=== PATIENT | male | born 1935 | race Caucasian/White ===

== ENCOUNTER 2024-02-26 17:23 | Emergency (ER) | payer MEDICARE ==
--- NOTE | 2024-02-26 17:29 | ERPHSYRPT ---
- History of Present Illness Time Seen by Provider: 02/26/24 17:28 Source: patient, family Exam Limitations: no limitations Physician History: This is a cachectic appearing 88-year-old white male patient of Dr. Vivas who was being seen by nurse practitioner Redd at the [facility]. The patient has had bilateral lower extremity wounds for greater than 4 months per patient and per patient's significant other. He has a history of hypertension and TMJ. He says he has been told he has CHF but does not routinely take his diuretic medication. Patient was sent to the emergency department to have his bilateral lower extremity wounds evaluated despite them being present for over 4 months. I reviewed the outpatient order sheet that the nurse practitioner wanted the patient to have. I made sure I added all these to the patient's workup. Patient denies chest pain. He chronically has shortness of breath and it is no different today. He is unsure if he wants to stay here this evening. He will complete the workup Method of Injury: other (No injury) Quality: other (Occasionally stretching and tearing sensation) Severity of Pain-Max: mild Severity of Pain-Current: mild Lower Extremities Pain: leg: bilateral (Low the knee bilaterally including mid tibia level caudal to the plantar surface of his feet), ankle: bilateral, heel: bilateral Modifying Factors: Improves With: movement Associated Symptoms: other (Hurts to bear weight) Allergies/Adverse Reactions: No Known Drug Allergies Allergy (Verified 02/26/24 17:59) Home Medications: Acyclovir 800 mg [Acyclovir] 800 mg PO UD 02/26/24 [History] Ampicillin Trihydrate 500 mg PO UD 02/26/24 [History] Carbamazepine 200 mg [Tegretol 200 MG] 200 mg PO QID 02/26/24 [History] Metoprolol Succinate 25 mg Xl* [Toprol-Xl 25MG Tablets] 50 mg PO DAILY 08/16 [History] Travel Risk - International Travel Have you traveled outside of the country in past 3 weeks: No - Emerging Infectious Disease Are you exhibiting symptoms associated with any current EIDs: No - Review of Systems Constitutional: No Symptoms Eyes: No Symptoms Ears, Nose, & Throat: No Symptoms Respiratory: Dyspnea (Chronic) Cardiac: No Symptoms Abdominal/Gastrointestinal: No Symptoms Genitourinary Symptoms: No Symptoms Musculoskeletal: No Symptoms Skin: Other (Bilateral lower extremity lymphedema from his mid tibia to the bottom of his feet with skin tears present) Neurological: No Symptoms Psychological: No Symptoms Endocrine: No Symptoms Hematologic/Lymphatic: No Symptoms - Past Medical History Pertinent Past Medical History: Yes - Nursing Vital Signs Nursing Vital Signs: Initial Vital Signs Temperature 98.9 F 02/26/24 17:31 Pulse Rate 96 H 02/26/24 17:31 Blood Pressure 146/77 02/26/24 17:31 O2 Sat by Pulse Oximetry 96 02/26/24 17:31 Pain Scale Pain Intensity 4 - Physical Exam General Appearance: no apparent distress, alert, cachetic Eyes, Ears, Nose, Throat Exam: normal ENT inspection, moist mucous membranes Neck Exam: normal inspection, non-tender, supple, full range of motion Cardiovascular/Respiratory Exam: chest non-tender, no respiratory distress Gastrointestinal/Abdominal Exam: non-tender Back Exam: normal inspection, normal range of motion, No CVA tenderness, No vertebral tenderness Hips Exam: bilateral: non-tender, normal inspection, normal range of motion, no evidence of injury Legs Exam: bilateral leg: bone tenderness, soft tissue tenderness (Mid tibia distally), swelling (Mid tibia distally), other (Lymphedema bilateral lower extremities below the knee including the level of tibia ankle and feet) Knees Exam: bilateral knee: non-tender, normal inspection, normal range of motion, no evidence of injury Ankle Exam: bilateral ankle: soft tissue tenderness, swelling, other (Lymphedema) Foot Exam: bilateral foot: soft tissue tenderness, swelling, other (Lymphedema) Neuro/Tendon Exam: normal motor functions, normal tendon functions, responds to pain, no evidence tendon injury Mental Status Exam: alert, oriented x 3, cooperative Skin Exam: other (Lymphedema bilateral lower extremity) SpO2 Interpretation: normal O2 Delivery: Room Air - Course Nursing assessment & vital signs reviewed: Yes Ordered Tests: Active Orders 24 hr Category Date Time Status EKG-ER Only STAT Care 02/26/24 18:14 Active IV Insertion STAT Care 02/26/24 18:13 Active CHEST 1 VIEW (PORTABLE) Stat Exams 02/26/24 18:15 Taken BLOOD CULTURE Stat Lab 02/26/24 18:38 Received CBC W DIFF Stat Lab 02/26/24 18:30 Completed CMP Stat Lab 02/26/24 18:30 Received CULTURE,WOUND Stat Lab 02/26/24 18:12 Ordered Lactic Acid Stat Lab 02/26/24 18:13 Completed MAGNESIUM Stat Lab 02/26/24 18:30 Received NT PRO BNPII Stat Lab 02/26/24 18:30 Received TROPONIN Q4H Lab 02/26/24 18:30 Received TROPONIN Q4H Lab 02/26/24 22:15 Ordered TROPONIN Q4H Lab 02/27/24 02:15 Ordered Lab/Rad Data: Laboratory Result Diagrams 02/26/24 18:30 Laboratory Results 02/26/24 02/26/24 Range/Units 18:30 18:13 WBC 5.8 (4.23-9.07) x10^3/uL RBC 3.55 L (4.63-6.08) x10^6/uL Hgb 11.3 L (13.7-17.5) g/dL Hct 35.8 L (40.1-51.0) % MCV 100.8 H (79.0-92.2) fL MCH 31.8 (25.7-32.2) pg MCHC 31.6 L (32.3-36.5) g/dL RDW 14.6 H (11.6-14.4) % Plt Count 242 (163-337) x10^3/uL MPV 11.1 (9.4-12.4) fL Gran % 80.4 H (34.0-67.9) % Immature Gran % (Auto) 0.3 (0.001-0.429) % Nucleat RBC Rel Count 0.0 (0.00-0.2) % Eos # (Auto) 0.34 (0.04-0.54) x10^3/uL Immature Gran # (Auto) 0.02 (0.001-0.031) x10^3u/L Absolute Lymphs (auto) 0.38 L (1.32-3.57) x10^3/uL Absolute Monos (auto) 0.38 (0.30-0.82) x10^3/uL Absolute Nucleated RBC 0.00 (0.00-0.012) x10^3u/L Lymphocytes % 6.5 L (21.8-53.1) % Monocytes % 6.5 (5.3-12.2) % Eosinophils % 5.8 (0.8-7.0) % Basophils % 0.5 (0.2-1.2) % Absolute Granulocytes 4.67 (1.78-5.38) x10^3/uL Basophils # 0.03 (0.01-0.08) x10^3/uL Lactic Acid 1.0 (0.4-2.0) - Progress Progress: unchanged Progress Note: 02/26/24 19:18 My medical decision making and assignment of mod complexity was based on past med hx, review med list, review drug allergy list, hpi, and physical findings on examination. workup includes iv placement, cmp, cbc, bnp, 12 lead ekg, cxr diff dx includes but not limited cellulitis, lymphedema, chf exacerbation 02/26/24 20:00 Patient is wanting to go home AGAINST MEDICAL ADVICE. He was advised of the risks of leaving before the workup is complete. He may have an emergent medical issue. He is aware that his condition could worsen or he could . He states he is understanding. He is awake alert and oriented. He will sign the AGAINST MEDICAL ADVICE form Counseled pt/family regarding: lab results, diagnosis, rad results Medical Desision Making - Independent Historian Additional History obtained from: Spouse - Departure Departure Disposition: AMA Clinical Impression: Chronic ulcer of leg, Lymphedema Condition: Stable Critical Care Time: No Referrals: BELEM VIVAS MD [Primary Care Provider] - Follow up/PCP as directed Additional Instructions: Take all your medications as prescribed. Call your prescribing provider tomorrow morning, 02/27/2024 to make arrangements for follow-up appointment including appointments for wound care and to be seen in the next 3 days.
[2024-02-26 17:59] VITALS: TEMP 98.9
[2024-02-26 19:00] LABS: Absolute Neutrophil Ct (ANC) 4.67 x10^3/uL (1.78-5.38); BASOPHIL % 0.5 % (0.2-1.2); Basophil (Absolute #) 0.03 x10^3/uL (0.01-0.08); Eosinophil % 5.8 % (0.8-7.0); Eosinophil (Absolute #) 0.34 x10^3/uL (0.04-0.54); Hematocrit 35.8 % (40.1-51.0); Hemoglobin 11.3 g/dL (13.7-17.5); IMMATURE GRAN # 0.02 x10^3u/L (0.001-0.031); IMMATURE GRAN % 0.3 % (0.001-0.429); Lymphocyte (Absolute #) 0.38 x10^3/uL (1.32-3.57); Lymphocytes % 6.5 % (21.8-53.1); Mean Cell Volume 100.8 fL (79.0-92.2); Mean Corpuscular Hemoglobin 31.8 pg (25.7-32.2); Mean Corpuscular Hgb Concent. 31.6 g/dL (32.3-36.5); Mean Platelet Volume 11.1 fL (9.4-12.4); Monocyte (Absolute #) 0.38 x10^3/uL (0.30-0.82); Monocytes % 6.5 % (5.3-12.2); Neutrophil % 80.4 % (34.0-67.9); Platelet Count 242 x10^3/uL (163-337); Red Blood Count 3.55 x10^6/uL (4.63-6.08); Red Cell Distribution Width 14.6 % (11.6-14.4); White Blood Count 5.8 x10^3/uL (4.23-9.07)
[2024-02-26 19:53] LABS: ALBUMIN 2.8 g/dL (3.5-5.0); ANION GAP 11.7 MEQ/L (5-15); BILIRUBIN,TOTAL 0.5 mg/dL (0.2-1.3); Calcium 9.1 mg/dL (8.4-10.2); Creatinine 1 1.8 mg/dL (0.66-1.25); EST GLOMERULAR FILTRATION RATE 36.2 ML/MIN; MAGNESIUM 2.2 mg/dL (1.6-2.3); Potassium 4.6 mmol/L (3.5-5.1); Total Protein 5.9 g/dL (6.3-8.2)
[2024-02-26 20:17] VITALS: BP 147/85; PULSE 97; O2SAT 93
--- NOTE | 2024-02-27 08:41 | XRAY ---
Indication: Short of breath. Comparison: September 28, 2020 Portable chest now demonstrates cardiomegaly, pulmonary edema, and small bibasilar effusions favoring cardiac decompensation/CHF. Superimposed pneumonia not completely excluded. Again incidental left hilar calcified node. Bony thorax intact again with osteopenia and degenerative changes.
== END 2024-02-26 20:42 | disposition left against medical advice (07) ==
LOC: ED 17:23
DX: L97.929 Non-pressure chronic ulcer of unspecified part of left lower leg with unspecified severity (principal); L97.919 Non-pressure chronic ulcer of unspecified part of right lower leg with unspecified severity; I89.0 Lymphedema, not elsewhere classified; R06.02 Shortness of breath; I10 Essential (primary) hypertension; Z79.899 Other long term (current) drug therapy
CPT/HCPCS: 36415; 71045; 80053; 83605; 83735; 83880; 84484; 85025; 87040; 93005; 99284

== ENCOUNTER 2024-02-28 19:23 | Emergency (ER) | payer MEDICARE ==
--- NOTE | 2024-02-28 20:01 | ERPHSYRPT ---
- History of Present Illness Time Seen by Provider: 02/28/24 20:01 Source: patient Exam Limitations: no limitations Physician History: The patient, an 88-year-old individual with a history of cardiovascular disease, presented with a chief complaint of leg wounds that have been weeping for the past three to four weeks. He reported that the wounds have recently opened up and started "popping." He denied taking any antibiotics since the onset of the leg wounds. The patient's medical history is significant for a bout of double pneumonia in March of the previous year, which was treated with five pills of an unspecified medication, followed by a course of ampicillin. He reported that his condition deteriorated after this treatment, with a loss of taste, leading to a suspicion of COVID-19. The patient also reported a history of cardiovascular disease, with two stents placed ten years ago. He was previously on Bumex (a diuretic), which was stopped due to lack of any drainage. He then switched to Furosemide, which led to excessive urination. He was not currently on any diuretic at the time of the consultation. Timing/Duration: week(s) (4), worse Quality: painful Severity: moderate Location: extremities (b/l LE) Possible Causes: other (swelling) Associated Symptoms: blisters, change in skin texture, edema, No difficulty breathing Allergies/Adverse Reactions: No Known Drug Allergies Allergy (Verified 02/28/24 19:44) Home Medications: Acyclovir 800 mg [Acyclovir] 800 mg PO UD 02/26/24 [History] Ampicillin Trihydrate 500 mg PO UD 02/26/24 [History] Carbamazepine 200 mg [Tegretol 200 MG] 200 mg PO QID 02/26/24 [History] Metoprolol Succinate 25 mg Xl* [Toprol-Xl 25MG Tablets] 50 mg PO DAILY 02/26/24 [History] Hx Influenza Vaccination/Date Given: Yes Hx Pneumococcal Vaccination/Date Given: Yes Travel Risk - Emerging Infectious Disease Are you exhibiting symptoms associated with any current EIDs: No - Review of Systems All Other Systems: Reviewed and Negative - Past Medical History Pertinent Past Medical History: Yes Cardiac History: Arrhythmia, Congestive Heart Failure, Myocardial Infarction ([place]) Respiratory History: COPD, Pneumonia - Past Surgical History Past Surgical History: Yes Cardiac: Cardiac Stent Gastrointestinal: Appendectomy - Social History Smoking Status: Never smoker Exposure to second hand smoke: No Drug Use: none - Social Determinants of Health Will the patient participate in the screening: Declined to provide - Nursing Vital Signs Nursing Vital Signs: Initial Vital Signs Pulse Rate 91 H 02/28/24 19:41 Respiratory Rate 20 02/28/24 19:41 Blood Pressure 131/81 02/28/24 19:41 O2 Sat by Pulse Oximetry 99 02/28/24 19:41 Pain Scale Pain Intensity 3 - Physical Exam General Appearance: no apparent distress Cardiovascular Exam: normal peripheral pulses, capillary refill <2 sec, edema (2+ b/l LE) Neurologic Exam: alert, oriented x 3, cooperative Skin Exam: other (b/l LE erythema, weeping, multiple ulcerations with purulent drainage) SpO2 Interpretation: normal O2 Delivery: Room Air - Course Nursing assessment & vital signs reviewed: Yes Ordered Tests: Active Orders 24 hr Category Date Time Status CULTURE,WOUND Stat Lab 02/28/24 21:02 Received Medication Summary Discontinued Medications Generic Name Dose Route Start Last Admin Trade Name Shekhar PRN Reason Stop Dose Admin Doxycycline Hyclate 100 mg 02/28/24 20:24 02/28/24 20:29 Doxycycline Hyclate 100 Mg Tablet PO 02/28/24 20:25 100 mg STAT ONE Administration Doxycycline Hyclate Confirm 02/28/24 20:29 Doxycycline Hyclate 100 Mg Tablet Administered 02/28/24 20:30 Dose 100 mg .ROUTE .STK-MED ONE - Progress Progress: unchanged Progress Note: Patient started on Doxycycline. Recommend restarting Lasix. Patient will pursue follow up with Dr. Rouse, infectious disease specialist to manage his wounds. Will likely need BRENNEN to evaluate peripheral blood flow. Wounds bandaged with xeroform, kerlix and karyn bandage. Sent xeroform to pharmacy for daily dressing change. Counseled pt/family regarding: diagnosis, need for follow-up Medical Desision Making - Diagnostic Testing Diagnostic test were ordered, analyzed, and reviewed by me: Yes - Risk of complications The pt has a mod risk of morbidity or mortality based on: Need for prescription drug management - Departure Departure Disposition: Home Clinical Impression: Cellulitis of both feet, Bilateral lower extremity edema, Open wound, lower leg, Lymphedema, Chronic ulcer of leg Condition: Good Critical Care Time: No Referrals: BELEM VIVAS MD [Primary Care Provider] - Follow up/PCP as directed SHAYNA ROUSE MD [COURTESY STAFF] - Follow up/PCP as directed Instructions: Wound Care ED Prescriptions: Doxycycline Monohydrate [Mondoxyne Nl] 100 mg PO BID 14 Days #28 cap Potassium Chloride 10 meq PO DAILY 30 Days #30 tablet Bismuth Tribromoph/Petrolatum [Xeroform 5"X9" Gauze Strip] 1 each TP DAILY 30 Days #30 units
[2024-02-28 20:06] VITALS: TEMP 98.3; O2SAT 97
[2024-02-28] MEDS: Vibramycin 100 MG PO ONE (20:29)
[2024-02-28] MEDS ORDERED: Vibramycin 100 MG ONE (20:29)
[2024-02-28 20:45] VITALS: BP 138/85; PULSE 94; RESP 17
== END 2024-02-28 20:45 | disposition home or self-care (01) ==
LOC: ED 19:23
DX: L97.929 Non-pressure chronic ulcer of unspecified part of left lower leg with unspecified severity (principal); L97.919 Non-pressure chronic ulcer of unspecified part of right lower leg with unspecified severity; L03.116 Cellulitis of left lower limb; L03.115 Cellulitis of right lower limb; R60.0 Localized edema; I89.0 Lymphedema, not elsewhere classified; I50.9 Heart failure, unspecified; Z79.899 Other long term (current) drug therapy
CPT/HCPCS: 87070; 87077; 87186; 99283; A9270-GY